=== PATIENT | male | born 2000 | race Caucasian/White ===

== ENCOUNTER 2024-10-21 07:25 | Emergency (ER) | payer BC ==
[~2024-10-21] VITALS: Ht 167.6 cm; Wt 91.0 kg
[2024-10-21 07:28] VITALS: TEMP 98.3
--- NOTE | 2024-10-21 08:20 | Physician Documentation ---
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 Patient has started to notice a rash and itching two days ago, last Tuesday. Patient denies any other symptoms. Rash is getting worse. Review of systems: All systems were reviewed and are negative except for what is indicated in the history of present illness. Past Medical History: None Past Surgical History: None Social History: No tobacco use, no drug use, occasional alcohol use Medications: Reviewed as documented Nursing Notes Allergies: Reviewed as documented in Nursing Notes Medication Reconciliation Allergies: Coded Allergies: No Known Allergies (Unverified , 10/21/24) Review of Systems All Other Systems at this time: Reviewed and Negative ROS Patient denies any other acute symptoms other than above. All other systems are negative Physical Exam Vital Signs: RN Vital Signs have been reviewed: Yes, Temperature: 98.3, Source: Temporal, Heart Rate: 71, Respiratory Rate: 18, BP: 142/100, Pulse Oximetry: 100, Weight: 90.950 Oxygen Flow Rate: 0 Pulse Oximetry Reflects: adequate oxygenation Physical Exam General Appearance: No distress HEENT: Normal OP, moist oral mucosa, PERRL, EOMI, no rash on the face Neck: supple, normal ROM, trachea midline Pulmonary: No respiratory distress, CTA, BS equal Cardiac: RRR, no murmur, rub or gallop, Extremities: normal ROM, no swelling, non-tender Skin: intact, dry, warm, pink rash over the forearms, right lateral hip and thigh Neuro: AAOx3 Progress Results/Orders Results/Orders Vital Signs 10/21/24 07:28 Temp 98.3 Pulse 71 Resp 18 B/P (MAP) 142/100 Pulse Ox 100 O2 Flow Rate 0 Medical Decision Making Findings Differential diagnosis includes but is not limited to: Poison oak dermatitis, other contact dermatitis, viral exanthem Emergency department course/medical decision-making: History and physical is consistent with a poison oak contact dermatitis. Patient has had this before. Patient is given a Kenalog injection 40 mg IM. Patient is stable for discharge. Departure Time of Disposition: 08:17 Disposition: 01 HOME / SELF CARE / HOMELESS Impression: Primary Impression: Poison oak dermatitis Condition: Stable Discharge Instructions: Poison [place] Dermatitis, [id number] Additional Instructions: YOU MAY USE TECNU FOR A WASH. USE BENADRYL NEEDED IF ITCHING CONTINUES, GOOD TO USE BEFORE BED IF ITCHING IS KEEPING YOU AWAKE. Education Educated: Patient Educated regarding: diagnosis, treatment Signature Scribe Signature: No scribe Attestation: No scribe DARIO GERMAN MD Oct 21, 2024 08:20
[2024-10-21] MEDS: triamcinolone acetonide 40mg/ml inj IM ONE (08:40)
[2024-10-21] MEDS: dexamethasone sod phosphate 10mg/ml inj IM STA (08:53)
[2024-10-21 08:58] VITALS: BP 125/74; PULSE 64; RESP 18; O2SAT 98
== END 2024-10-21 09:00 | disposition home or self-care (01) ==
LOC: ER 07:26
DX: L23.7 Allergic contact dermatitis due to plants, except food (principal)
CPT/HCPCS: 96372; 99283; J1100